=== PATIENT | female | born 2000 | race African-American/Black ===

== ENCOUNTER 2019-03-23 10:13 | Observation (INO) ==
[2019-03-23 12:30] LABS: Basophils % 0.1 % (0.0-0.8); Eosinophils % 0.3 % (0.00-10.9); Hematocrit 36.7 VOL% (35.7-47.0); Hemoglobin 12.4 GM/DL (12.0-16.0); Immature Granulocytes % 0.3 %; Immature Granulocytes Absolute 0.03 #; Lymphocytes # 1.6 10*3/uL (1.4-4.0); Lymphocytes % 18.6 % (21.3-54.2); Mean Corpuscular HGB Conc 33.8 GM/DL (32-36); Mean Corpuscular Volume 86.2 FL (87-102); Mean Platelet Volume 9.3 FL (9.6-12.0); Monocytes % 8.1 % (1.7-12.7); Neutrophils % 72.6 % (38.7-73.9); Platelet Count 235 T/CUMM (130-400); Red Blood Count 4.26 MC/CUMM (3.8-5.5); Red Cell Distribution Width 13.2 % (9.3-17.3); White Blood Count 8.6 T/CUMM (4-12)
[2019-03-23] MEDS ORDERED: LIDOCAINE 1%/EPI INJ 20 ML VIAL ONE (12:50)
[2019-03-23] MEDS ORDERED: BUPIVACAINE MPF 0.25% 30 ML VIAL ONE (12:50)
[2019-03-23 12:53] LABS: Bilirubin,Total 0.6 MG/DL (0.2-1.0); Total Protein 8.5 G/DL (6.4-8.3)
[2019-03-23 12:58] LABS: Apearance,Urine CLEAR (Clear); Bilirubin,Urine Negative (Negative); Blood, Urine Moderate mg/dL (Negative); Glucose,Urine (UA) Negative (Negative); Ketones,Urine Negative (Negative); Mucus,Urine Occasional /LPF (Occasional); Nitrite,Urine Negative (Negative); Protein,Urine Negative; RBC,Urine 3 /HPF (0-4); Squamous Epithelial Cell,Urine Occasional /HPF (0-10); Urine Color Yellow (Yellow); Urine Specific Gravity 1.016 (1.001-1.035); Urine Urobilinogen < 2.0 EU/DL (0.2-1.0); WBC,Urine <1 /HPF (0-6)
[2019-03-23] MEDS ORDERED: INFLUENZA VIRUS VACCINE 0.5 ML SYRINGE IM ONE (15:13)
[2019-03-23] MEDS ORDERED: ACETAMINOPHEN 325 MG TABLET PO PRN (15:15)
[2019-03-23] MEDS ORDERED: ONDANSETRON 4 MG/2 ML VIAL IV PRN (15:15)
[2019-03-23] MEDS: CLINDAMYCIN INJ 900 MG in PREMIX 1 EACH IV SCH ×2 (16:00→23:30)
[2019-03-23] MEDS: LACTATED RINGERS 1,000 ML IV SCH ×2 (16:40→23:29)
[2019-03-24] MEDS ORDERED: CLINDAMYCIN INJ 50 ML IV ONE (09:01)
[2019-03-24] MEDS: CLINDAMYCIN INJ 900 MG in PREMIX 1 EACH IV SCH (09:08)
[2019-03-24] MEDS ORDERED: BUPIVACAINE MPF 0.25% 30 ML VIAL ONE (09:23)
[2019-03-24] MEDS ORDERED: LIDOCAINE 1%/EPI INJ 20 ML VIAL ONE (09:23)
[2019-03-24] MEDS ORDERED: MIDAZOLAM 2 MG/2 ML VIAL ONE (10:02)
[2019-03-24] MEDS ORDERED: propofoL 200 MG/20 ML VIAL IV ONE (10:02)
[2019-03-24] MEDS ORDERED: fentaNYL 100 MCG/2 ML VIAL ONE (10:02)
[2019-03-24] MEDS ORDERED: SEVOFLURANE 1 UNIT/15 MINUTE INH ONE (10:02)
[2019-03-24] MEDS ORDERED: DEXAMETHASONE 4 MG/1 ML VIAL ONE (10:03)
[2019-03-24] MEDS ORDERED: ONDANSETRON 4 MG/2 ML VIAL ONE (10:03)
[2019-03-24] MEDS: ENOXAPARIN 40 MG/0.4 ML SYRINGE SUBCUT SCH (14:06)
[2019-03-24] MEDS: SULFAMETHOX/TRIMETHOPRIM 800-160 MG TABLET PO SCH ×2 (14:34→21:37)
[2019-03-24] MEDS: PANTOPRAZOLE 40 MG TABLET PO SCH (14:34)
[2019-03-25] MEDS: LACTATED RINGERS 1,000 ML IV SCH ×4 (00:20→06:43)
[2019-03-25] MEDS: ENOXAPARIN 40 MG/0.4 ML SYRINGE SUBCUT SCH (06:42)
[2019-03-25 08:26] VITALS: BP 129/51
[2019-03-25] MEDS: SULFAMETHOX/TRIMETHOPRIM 800-160 MG TABLET PO SCH (09:28)
[2019-03-25] MEDS: PANTOPRAZOLE 40 MG TABLET PO SCH (09:28)
== END 2019-03-25 12:05 | disposition home or self-care (01) ==
LOC: N.ED 10:13 → N.EDINP 10:13 → N.3E 15:00
PROVIDERS: ADMIT Surgery; ATTEND Surgery